=== PATIENT | male | born 2000 | race African-American/Black ===

== ENCOUNTER 2018-08-08 20:09 | Emergency (ER) | payer OTHER ==
[~2018-08-08] VITALS: Ht 175.3 cm; Wt 56.0 kg
[2018-08-08] MEDS ORDERED: TETANUS, DIPHTHERIA, PERTUSSIS VAC/PF 0.5ML (>7YR OLD) IM ONE (22:30)
[2018-08-08] MEDS ORDERED: KETOROLAC 60MG/2ML VIAL IM ONE (23:45)
[2018-08-08] MEDS ORDERED: LIDOCAINE HCL/EPINEPHRINE 1%-EPI 1:100,000 30 ML VIAL INFIL ONE (23:45)
[2018-08-09 01:06] VITALS: BP 130/61
== END 2018-08-09 01:23 | disposition home or self-care (01) ==
LOC: ER 20:09
DX: S01.111A Laceration without foreign body of right eyelid and periocular area, initial encounter (principal); F12.10 Cannabis abuse, uncomplicated; V49.88XA Car occupant (driver) (passenger) injured in other specified transport accidents, initial encounter; Y93.89 Activity, other specified; Y92.89 Other specified places as the place of occurrence of the external cause; Y99.8 Other external cause status
CPT/HCPCS: 12011; 70450; 71045; 72125; 90471; 90715; 96372; 99284; J1885; Z7610